=== PATIENT | male | born 1995 | race Caucasian/White ===

== ENCOUNTER 2017-07-26 02:46 | Emergency (ER) | payer OTHER ==
[~2017-07-26] VITALS: Ht 190.5 cm; Wt 115.9 kg
[2017-07-26] MEDS ORDERED: SODIUM CHLORIDE 0.9% 1000ML 1,000 ML IV STA (02:49)
[2017-07-26 02:53] VITALS: TEMP 36.6; Ht 190.5 cm; Wt 115.9 kg
[2017-07-26 03:05] LABS: BASO % 0.6 %; BASO ABS # 0.08 K/uL (0-0.2); EOS % 0.6 %; EOS ABS # 0.09 K/uL (0-0.5); HEMATOCRIT 50.9 % (42-52); HEMOGLOBIN 18.4 g/dL (14.0-18.0); IG# 0.18 K/uL (0.00-0.02); LYMPH % 32.3 %; LYMPH ABS # 4.63 K/uL (1.2-3.4); MEAN CELL VOLUME 81.8 fL (80-100); MEAN CORPUSCULAR HEMOGLOBIN 29.6 pg (25-34); MEAN CORPUSCULAR HGB CONC 36.1 g/dl (32-36); MEAN PLATELET VOLUME 9.6 fL (7.4-10.4); MONO % 7.6 %; MONO ABS # 1.09 K/uL (0.11-0.59); NEUT % 57.6 %; NEUT ABS # 8.28 K/uL (1.4-6.5); PLATELET COUNT 368 K/uL (130-400); RED CELL DISTRIBUTION WIDTH CV 14.8 % (11.5-14.5); WHITE BLOOD COUNT 14.35 K/uL (4.8-10.8)
[2017-07-26] MEDS ORDERED: AMPH30CA3 PO (03:06)
[2017-07-26] MEDS ORDERED: AMPH30TA2 PO (03:06)
[2017-07-26] MEDS ORDERED: MINO100C22 PO (03:07)
[2017-07-26 03:24] LABS: ALBUMIN 4.2 gm/dl (3.4-5.0); CALCIUM 9.7 mg/dl (8.5-10.1); CREATININE 1.69 mg/dl (0.60-1.40); POTASSIUM 4.3 mmol/L (3.5-5.1)
[2017-07-26 03:26] LABS: TOTAL PROTEIN 8.2 gm/dl (6.4-8.2)
[2017-07-26 03:34] LABS: ISTAT CREATININE 1.6 mg/dl (0.6-1.3); ISTAT IONIZED CALCIUM 1.21 mmol/l (1.12-1.32); ISTAT POTASSIUM 4.2 mEq/L (3.3-5.0)
[2017-07-26 05:00] VITALS: BP 150/96; PULSE 117; O2SAT 98
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
== END 2017-07-26 05:05 | disposition home or self-care (01) ==
LOC: C.EDB 02:49 → C.EDA 05:05
DX: S20.211A Contusion of right front wall of thorax, initial encounter (principal); W10.1XXA Fall (on)(from) sidewalk curb, initial encounter; Y92.89 Other specified places as the place of occurrence of the external cause